=== PATIENT | male | born 1960 | race Caucasian/White ===

== ENCOUNTER 2019-11-30 01:33 | Day surgery (SDC) | payer OTHER, SELFPAY ==
[2019-11-28 13:56] VITALS: BMI 32.3
[2019-11-30] VITALS (10 sets, daily range): BP systolic 122–166; BP diastolic 71–89; PULSE 68–84; RESP 10–20; TEMP 36.2–37.1; O2SAT 93–100
--- NOTE | ~2019-11-30 | XR_ITS ---
XR surgery orthopedic 11/30/2019 14:22 Indication: ORIF right ankle status post fracture Procedure: 3 fluoroscopic images of the right ankle. 122 seconds of fluoroscopy. DAP is 7.6. Comparison: 11/28/2019 Findings: There is anatomic alignment of the right ankle post reduction with fibular sideplate and sc rews. There is a distal tibial component with internal fixation. Ankle mortise intact. Impression: 1: Anatomic alignment of the right ankle post surgical reduction with fibular sideplate and screws. Reviewed, dictated and finalized at location B. ER OPERATOR Impression: 1: Anatomic alignment of the right ankle post surgical reduction with fibular s ideplate and screws.
--- NOTE | 2019-11-30 05:55 | ECG_ITS ---
Measurements Intervals [place] Rate: 65 P: 29 PA: 163 QRS: -13 QRSD: 91 T: 7 QT: 402 QTc: 418 Interpretive Statements SINUS RHYTHM WITH SINUS ARRHYTHMIA VOLTAGE CRITERIA FOR LVH BORDERLINE T WAVE ABNORMALITY- INFERIOR LEADS BORDERLINE ECG Electronically Signed On 11-30-2019 12:47:37 MAGAZINE HAND by Prem Beebe D.O.
--- NOTE | 2019-11-30 07:25 | WPDHPUPDATE1 ---
History and Physical Update Update Date/Time: 11/30/19 07:25 History and Physical has been reviewed, including an updated exam of the patient. There are NO changes in the patient's condition. Risks, benefits, and alternatives have been discussed and questions answered. Patient agrees to proceed with procedure.
--- NOTE | 2019-11-30 11:41 | WPDANESPNB ---
Anes - Peripheral Nerve Block Date/Time: 11/30/19 11:41 I have discussed with the patient/family/POA the placement of a peripheral nerve block for post-operative pain management, including associated risks, benefits, complications, and side effects. Alternative methods of post-operative analgesia were detailed. Questions were solicited and answers provided to the satisfaction of the patient/family/POA. Time-Out: A pre-procedural Time-Out was completed immediately before starting the procedure and confirmed: Patient Identification, Site, Procedure, Patient Position and the Availability of Requisite Equipment. Clinical Indications: Acute post-operative pain management requested by the operative surgeon. Nerve Block Insertion Note Anes-nerve block: posterior fossa sciatic right and adductor canal right Patient position: supine (for adductor canal) and other (right lateral for popliteal) Skin prep: chlorhexidine Needle: 22 gauge, stimulating, insulated echogenic needle. Needle length: 80 mm Technique: nerve stimulation lost at (mA) (for popliteal lost at 0.2) and ultrasound Injectate: bupivacaine 0.5% with epi 5 mcg/ml (20 mL for popliteal, 10 mL for adductor canal) Observations: tolerated well Complications: none Procedure start time:: 1237 Procedure end time:: 1242
[2019-11-30] MEDS: LACTATED RINGERS 1,000 ML 30 ML IV CONT ×2 (12:00→14:43)
--- NOTE | 2019-11-30 12:13 | WPDANESEPPF ---
Anes - Initial Pre Proc Eval Procedure: Operation Date: 11/30/19 13:30 Proposed Procedures p Open Reduction Internal Fixation Right Ankle Bimalleolar Fracture - Deven Marroquin MD Date/Time: 11/30/19 12:13 Surgeon: Deven Marroquin MD Pre Op Diagnosis: Right Ankle Displaced Bimalleolar Fx Patient Data Age: 59 Gender: M Height: 1.78 m Weight: 102.06 kg Allergies Allergy/AdvReac Type Severity Reaction Status Date / Time No Known Allergies Allergy Verified 11/28/19 13:57 Home Medications Medication Instructions Recorded Confirmed Type glimepiride 4 mg PO DAILY 11/26/19 11/28/19 History metformin 500 mg PO BID 11/26/19 11/28/19 History oxycodone-acetaminophen [Percocet] 1 tablet PO Q6H PRN #30 tablet 11/26/19 11/28/19 Rx sitagliptin [Januvia] 100 mg PO DAILY 11/26/19 11/28/19 History aspirin 81 mg PO DAILY 11/28/19 11/28/19 History lovastatin 40 mg PO DAILY 11/28/19 11/28/19 History Patient hx anesthesia problems: none Family hx anesthesia problems: none [facility] Past Medical History Medical History (Updated 11/29/19 @ 09:58 by Laci Mallory DO) Diabetes mellitus Hyperlipidemia Family History Family History (Updated 11/28/19 @ 11:26 by Anahi Sims) Other Diabetes mellitus Anes - Eval Final PreProcedure Day of Procedure 11/30/19 12:13 Patient weight: obese Heart: regular rate and rhythm Lungs: clear to auscultation and normal air movement Airway: Mallampati scale class II Neurological: alert and oriented Last oral intake: >/= 8 hours ASA classification: III Emergent: no Anesthetic plan: proceed Anesthesia type and monitoring: general LMA and standard monitoring Informed Consent: The patient's anesthetic plan and its attendant risks and benefits were discussed with the patient/family/POA. Questions were solicited and answers provided to the satisfaction of the patient/family/POA.
[2019-11-30] MEDS: CELECOXIB 200 MG CAPSULE PO (12:30)
[2019-11-30 12:32] LABS: Blood Urea Nitrogen 13 mg/dL (9-20); Calcium 9.2 mg/dL (8.4-10.2); Carbon Dioxide 28 mmol/L (22-30); Chloride 101 mmol/L (98-107); Estimated CRCL calculation 92 ml/min; Estimated Glomerular Filt Rate > 60; Glucose 96 mg/dL (75-110); Potassium 4.3 mmol/L (3.4-5.0); Sodium 140 mmol/L (137-145)
[2019-11-30] MEDS: ceFAZolin 2 GM/D5W 50 ML 2 GM/50 ML BAG IVPB ×2 (12:48→19:59)
--- NOTE | 2019-11-30 12:57 | SUR.PREOP ---
STAT BMP DONE DOS- SERUM GLUCOSE 86MG/DL BY DOCUMENTING RN---NO ACCUCHECK DONE. FANY
[2019-11-30] MEDS: KETOROLAC 30 MG/ML VIAL (*BKC) IV PUSH (14:30)
--- NOTE | 2019-11-30 14:46 | PM.OP ---
Procedure Note - Brief Procedure Note - Brief Date of procedure: 11/30/19 Pre-op diagnosis: Right Ankle Displaced Bimalleolar Fx Procedure performed: ORIF RIGHT ANKLE WITH SYNDESMOSIS FIXATION Anesthesia: GETA Surgeon: Deven Marroquin MD Estimated blood loss (mL): 10 Complications: No immediate complications Condition: stable Disposition: PACU
[2019-11-30 15:01] LABS: Glucose Point of Care 151 (65-105)
--- NOTE | 2019-11-30 15:46 | SUR.PHASEI ---
1548 updated family in waiting room 1544 report to anthony
[2019-11-30] MEDS: SODIUM CHLORIDE 0.9% IV 1,000 ML 125 ML IV CONT (16:48)
[2019-11-30] MEDS: metFORMIN HCL 500 MG TABLET PO (17:58)
[2019-11-30] MEDS: GLIMEPIRIDE 2 MG TABLET 4 MG PO (17:59)
--- NOTE | 2019-11-30 19:21 | OP_ITS ---
DATE OF PROCEDURE: 11/30/2019 PREOPERATIVE DIAGNOSIS: Right bimalleolar ankle fracture. POSTOPERATIVE DIAGNOSIS: Right bimalleolar ankle fracture. PROCEDURE: Open reduction and internal fixation right ankle with syndesmosis fixation. ANESTHESIA: General. COMPLICATIONS: None. INDICATIONS: This is a 59-year-old male with right lateral malleolus and posterior malleolar ankle fracture with widened syndesmosis. He was indicated for open reduction and internal fixation right ankle. DESCRIPTION OF PROCEDURE: The patient was taken to the operating room in stable condition and placed in supine position. General anesthesia was induced. Right lower extremity was prepped and draped sterilely from the toes to the knee. Incision was made over the lateral aspect of the ankle down through the subcutaneous tissues. The superficial peroneal nerve was identified and protected. The dissection continued until the fascia over the bone was incised and the fracture was exposed. The fracture was reduced with fracture clamps, and then an Arthrex plate was placed bridging the fracture fragments in good position. The posterior malleolus was reduced well, and then there was some stress views done, which showed maybe some mild laxity in the syndesmosis, so using a standard technique, a tight rope type system was used to fixate the fibula to the tibia. X-rays were then taken once again found that everything was reduced well. The mortise view looked very nice with intact mortise. AP and lateral views also looked well with hardware in good position. The wound was irrigated thoroughly. The deep layers were approximated with #2-0 Vicryl, subcutaneous tissues with 3-0 Vicryl and the skin with amelia. Wounds were washed, placed sterile dressing. The patient was extubated and sent to recovery. Disha I MT: Shy
[2019-11-30 21:21] LABS: Glucose Point of Care 273 (65-105)
[2019-12-01] MEDS: ceFAZolin 2 GM/D5W 50 ML 2 GM/50 ML BAG IVPB ×2 (04:23→12:28)
[2019-12-01 06:00] VITALS: BP 136/67; PULSE 62; RESP 16; TEMP 36.2; O2SAT 100
[2019-12-01 07:37] LABS: Glucose Point of Care 76 (65-105)
[2019-12-01 08:17] VITALS: BP 143/58; PULSE 69; RESP 18; O2SAT 100
[2019-12-01] MEDS: GLIMEPIRIDE 2 MG TABLET 4 MG PO (08:20)
[2019-12-01] MEDS: ASPIRIN 81 MG ENTERIC TABLET PO (08:20)
[2019-12-01] MEDS: LOVASTATIN 20 MG TABLET 40 MG PO (08:21)
--- NOTE | 2019-12-01 08:39 | WPDANESPN ---
Anes - Prog Note Post-Op Date/Time: 12/01/19 08:39 Cardiovascular status: normal Respiratory status: normal Airway patency: baseline Mental status: baseline Post-Op hydration status: normal Vital Signs: Last Vital Signs Temp 36.2 C L 12/01/19 06:00 Pulse 69 12/01/19 08:17 Resp 18 12/01/19 08:17 BP 143/58 H 12/01/19 08:17 Pulse Ox 100 12/01/19 08:17 I/O: Intake & Output 11/30/19 12/01/19 12/01/19 23:59 07:59 15:59 Intake Total 740 290 Output Total 1000 500 Balance -260 -210 Laboratory Tests 11/30/19 12:12 11/30/19 11/30/19 11/30/19 12:12 14:58 21:10 Sodium 140 Potassium 4.3 Chloride 101 Carbon Dioxide 28 BUN 13 Creatinine 0.90 Estim Creat Clear Calc 92 Estimated GFR > 60 Glucose 96 POC Capillary Glucose 151 H 273 H Calcium 9.2 12/01/19 07:35 Sodium Potassium Chloride Carbon Dioxide BUN Creatinine Estim Creat Clear Calc Estimated GFR Glucose POC Capillary Glucose 76 Calcium Post-procedural complaints: none Patient Feedback: Patient satisfied with anesthetic care.
--- NOTE | 2019-12-01 09:54 | PM.PNORT ---
Progress Note: A&P Assessment and Plan (1) Ankle fracture, bimalleolar, closed: Qualifiers: Encounter type: subsequent encounter Laterality: right Fracture healing: with routine healing Qualified Code(s): S82.841D - Displaced bimalleolar fracture of right lower leg, subsequent encounter for closed fracture with routine healing Code(s): S82.843A - Displaced bimalleolar fracture of unspecified lower leg, initial encounter for closed fracture Status: Acute Assessment and Plan: POD #1: ORIF Right Ankle Fracture PT/OT for gait training. Walker. NWB RLE. Continue pain control. Ice. Elevation. Reviewed Incentive Spirometry Use. Keep Splint C/D/I. Dispo: Home today pending progress with PT/OT. Subjective Subjective Date/Time Seen: 12/01/19 09:54 Patient feeling well. Pain well-controlled. Awaiting PT/OT. Wants to go home today. Review of Systems Review of Systems: All systems reviewed & are unremarkable except as noted in HPI and below Constitutional: Constitutional: Denies chills, Denies fatigue, Denies fever(s) and Denies weakness Cardiovascular: Cardiovascular: Denies chest pain and Denies lightheadedness Respiratory: Respiratory: Denies cough, Denies dyspnea and Denies dyspnea on exertion Gastrointestinal: Gastrointestinal: Denies abdominal pain, Denies constipation, Denies diarrhea, Denies nausea and Denies vomiting Genitourinary: Genitourinary: Denies dysuria Musculoskeletal: Musculoskeletal: Reports other (Right Foot/Ankle Pain (well-controlled) ) Exam Const: General: comfortable and no acute distress Resp: Effort & Inspection: normal respiratory effort Cardio: Rate: regular rate Rhythm: regular rhythm GI: Inspection: non-distended Skin: General skin exam: normal color and no erythema Neuro: Cognition (Neuro): normal cognition Extrem: Right lower extremity: normal to inspection, normal capillary refill and ankle (Splint C/D/I) Details: tenderness (Right Ankle ), swelling Details: diffusely and abnormal ROM (ROM limited- splint in place ) Left lower extremity: normal to inspection, full ROM, normal capillary refill and ankle Details: normal to inspection; no tenderness and no swelling Other: Right Ankle splint c/d/i. Moves toes. Sensation intact to light touch. Good capillary refill. Psych: Mental Status: mental status grossly normal Affect: normal affect Objective Data Vital Signs Vital Signs: Vital Signs - 24 hr 11/30/19 12:36 11/30/19 14:43 11/30/19 14:55 Temperature 37.1 C 36.2 C L Pulse Rate 68 84 80 Respiratory Rate 18 10 L 13 Blood Pressure 124/74 144/75 H 135/75 Pulse Oximetry 96 100 100 11/30/19 15:10 11/30/19 15:25 11/30/19 15:40 Temperature Pulse Rate 78 81 79 Respiratory Rate 15 13 11 L Blood Pressure 142/78 H 143/78 H 126/76 Pulse Oximetry 100 93 94 11/30/19 16:05 11/30/19 16:20 11/30/19 16:53 Temperature 36.3 C L 36.4 C 36.6 C Pulse Rate 80 76 77 Respiratory Rate 20 20 20 Blood Pressure 149/78 H 122/89 166/83 H Pulse Oximetry 100 95 95 11/30/19 22:00 12/01/19 06:00 12/01/19 08:17 Temperature 37.0 C 36.2 C L Pulse Rate 83 62 69 Respiratory Rate 16 16 18 Blood Pressure 140/71 136/67 143/58 H Pulse Oximetry 97 100 100 Intake/Output Intake/Output: Intake & Output 11/28/19 11/29/19 11/30/19 12/01/19 23:59 23:59 23:59 23:59 Intake Total 1090 650 Output Total 1000 500 Balance 90 150 Meds/Results Medications: Active Medications Generic Name Dose Route Start Last Admin Trade Name Freq PRN Reason Stop Dose Admin Acetaminophen 650 mg 11/30/19 14:47 Tylenol Tablet PO Q6H PRN Pain Rated 1-3 Hydrocodone Bitart/Acetaminophen 1 tab 11/30/19 14:47 11/30/19 23:09 [place] 7.5-325 Mg PO 1 tab Q3H PRN Administration Pain Rated 4-6 Aspirin 81 mg 12/01/19 09:00 12/01/19 08:20 Aspirin Ec PO 81 mg DAILY JENNIFER Administration Dextrose 12.5 gm 11/30/19 20:12 Dextro
[2019-12-01 12:04] LABS: Glucose Point of Care 92 (65-105)
[2019-12-01] MEDS: metFORMIN HCL 500 MG TABLET PO (12:29)
--- NOTE | 2019-12-01 13:00 | PM.IMHP ---
H&P: HPI History of Present Illness Chief complaint: Right Ankle Displaced Bimalleolar Fx Narrative: Date of Service 12/01/19 The supervising physician for this medical consultation is Dr. Cecilia Lomeli. Mr. Sauceda is a 59 year old male with history of [id number] type 2 diabetes mellitus and dyslipidemia who I am asked to see in consultation by Dr. Marroquin for postoperative medical management s/p ORIF right ankle fracture. Patient fell 11/26/19 at home and sustained by malleolar right ankle fracture. He reports feeling well today and seems that he has tolerated the procedure well. He denies any nausea, vomiting, chest pain, or shortness of breath. He reports he has done well with therapy and is looking forward to possible discharge later today. Review of Systems Review of Systems: Narrative: Twelve systems were reviewed with pertinent positives and negatives as per HPI. [facility] Past Medical History Medical History Diabetes mellitus High cholesterol Hyperlipidemia Family History Family History (Updated 12/01/19 @ 13:16 by Sunshine Mccollum PA-C) Father Heart disease Other Diabetes mellitus Social History Social History (Updated 12/01/19 @ 13:18 by Sunshine Mccollum PA-C) Social History: Mr. Sauceda lives in [place] with his and children. 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 He reports occasional alcohol use, around 1 beer per month. He smoked cigarettes for about 5 years in the 80s and quit. He denies substance use. His PCP is Dr Debra Vance in [place]. He is full code status. Years smoked: 5 Smoking status: Former smoker Tobacco type: cigarettes Alcohol intake: current Alcohol use details: Occasional - < 1 beer per week. Substance use: never Living arrangements: with family Gender identity (if verbalized by the patient): Male Spiritual care concerns: No Agree to blood products: Yes Meds Home Medications and Allergies Home Medications Medication Instructions Recorded Confirmed Type Januvia 100 mg PO DAILY 11/26/19 11/30/19 History glimepiride 4 mg PO DAILY 11/26/19 11/30/19 History metformin 1,000 mg PO BID 11/26/19 11/30/19 History aspirin 81 mg PO DAILY 11/28/19 11/30/19 History lovastatin 40 mg PO DAILY 11/28/19 11/30/19 History aspirin 81 mg PO BID 14 Days #28 tablet 12/01/19 Rx docusate sodium [Colace] 100 mg PO BID PRN #30 cap 12/01/19 Rx hydrocodone-acetaminophen 1 tab PO Q3H PRN #56 tablet 12/01/19 Rx Allergies Allergy/AdvReac Type Severity Reaction Status Date / Time No Known Allergies Allergy Verified 11/30/19 12:56 Vital Signs Vital Signs - 24 hr 11/30/19 14:43 11/30/19 14:55 11/30/19 15:10 Temperature 97.2 F L Pulse Rate 84 80 78 Respiratory Rate 10 L 13 15 Blood Pressure 144/75 H 135/75 142/78 H Pulse Oximetry 100 100 100 11/30/19 15:25 11/30/19 15:40 11/30/19 16:05 Temperature 97.3 F L Pulse Rate 81 79 80 Respiratory Rate 13 11 L 20 Blood Pressure 143/78 H 126/76 149/78 H Pulse Oximetry 93 94 100 11/30/19 16:20 11/30/19 16:53 11/30/19 22:00 Temperature 97.6 F 97.9 F 98.6 F Pulse Rate 76 77 83 Respiratory Rate 20 20 16 Blood Pressure 122/89 166/83 H 140/71 Pulse Oximetry 95 95 97 12/01/19 06:00 12/01/19 08:17 Temperature 97.2 F L Pulse Rate 62 69 Respiratory Rate 16 18 Blood Pressure 136/67 143/58 H Pulse Oximetry 100 100 Exam Narrative: Exam Narrative: General: Male sitting up in bedside chair no acute distress, visiting with family in the room. HEENT: Normocephalic, EOMI, oral mucosa moist. Cardiovascular: Rate rhythm regular. Respiratory: Lungs clear to auscultation all jones. Non-labored breathing. Tolerating room air. Abdomen: Soft, non-tender, non-distended, bowel sounds present. Extremities: Right toes outside of his splint are neurovascularly intact distal to the surgical site. Neuro: No focal neuro
[2019-12-01 14:00] VITALS: PULSE 63; RESP 16; TEMP 36.9; O2SAT 98
--- NOTE | 2019-12-01 15:29 | PM.DS ---
DS: Diagnosis Admitting Diagnosis Admitting Diagnosis: Displaced bimalleolar fracture of right lower leg, subsequent encounter for closed fracture with routine healing DS: Summary Hospital Course Reason for hospitalization: Postoperative pain/medical management and PT/OT s/p right ankle ORIF Hospital Course: 59 year old male admitted s/p ORIF right ankle for postoperative pain control, medical management and gait training. Patient had a stable hospital course and has been cleared by medicine and PT/OT to go home. He is able to ambulate NWB of the RLE safely. Status at Discharge Functional status at discharge: uses cane/walker (NWB RLE ) Overall status at discharge: patient is progressing back to baseline Time Spent with Patient Time attestation: Total time spent providing and/or coordinating discharge services: Exam Const: General: comfortable and no acute distress Resp: Effort & Inspection: normal respiratory effort Cardio: Rate: regular rate Rhythm: regular rhythm GI: Inspection: non-distended Skin: General skin exam: normal color and no erythema Neuro: Cognition (Neuro): normal cognition Extrem: Right lower extremity: normal to inspection, normal capillary refill and ankle (Splint C/D/I) Left lower extremity: normal to inspection, full ROM, normal capillary refill and ankle Other: Right Ankle splint c/d/i. Moves toes. Sensation intact to light touch. Good capillary refill. Psych: Mental Status: mental status grossly normal Affect: normal affect DS: Data Data Completed and Pending Labs on day of discharge: Labs from last 24 hours 12/01/19 12/01/19 11/30/19 11:55 07:35 21:10 POC Capillary Glucose 92 76 273 H Discharge Plan Discharge Attending physician on discharge: Deven Marroquin Consulting providers: Sunshine Mccollum Discharging Clinician: Thelma Miller Patient Disposition: Home, Self-Care Activity: no shower and other - see discharge instructions Diet: as tolerated Wound Care Instructions: keep dressing dry Discharge Instructions: Orthopedic Instructions: Keep splint clean and dry. Do NOT bear weight on the RIGHT lower extremity Elevate above level of heart on pillows. Follow up with Dr. Marroquin as scheduled. Contact our office at [phone] with any questions/concerns. Your medications have been called to the pharmacy. Increase your aspirin 81mg to TWO TIMES daily for DVT prevention per Dr. Marroquin x14 days. STOP taking any narcotics aside from the [place] prescribed to you today. Hospitalist Care Instructions: Follow up with primary care provider in 2 weeks Patient Instructions: Antibiotic Form Stand Alone Forms: General Discharge Information Follow-up/Referrals: Deven Marroquin MD [Physician] - 12/15/19 1:00 pm (You have a follow up appointment with Dr. Marroquin on 12/15/19 at 1:00 PM at [facility]. ) Yen Vance MD [Primary Care Provider] - 2 Weeks Thelma Miller FNP [Advanced Practice Nurse] - Discharge Medications: New hydrocodone-acetaminophen 7.5-325 mg Tablet 1 tab PO Q3H PRN (Reason: Pain Rated 4-6) Qty: 56 RF: 0 docusate sodium [Colace] 100 mg capsule 100 mg PO BID PRN (Reason: constipation) Qty: 30 RF: 0 aspirin 81 mg Tablet,Delayed Release (Dr/Ec) 81 mg PO BID 14 Days Qty: 28 RF: 0 Continued metformin 500 mg Tablet 1,000 mg PO BID RF: 0 glimepiride 4 mg Tablet 4 mg PO DAILY RF: 0 Januvia 100 mg Tablet 100 mg PO DAILY RF: 0 lovastatin 20 mg tablet 40 mg PO DAILY RF: 0 Discontinued oxycodone-acetaminophen [Percocet] 5-325 mg tablet 1 tablet PO Q6H PRN (Reason: pain) Qty: 30 RF: 0 No Action aspirin 81 mg Tablet,Delayed Release (Dr/Ec) 81 mg PO DAILY RF: 0 Date of admission: 11/30/19 14:47 Primary Care Provider: Yen Vance Admitting Provider: Deven Marroquin Attending physician on admission: Deven Marroquin
== END 2019-12-01 16:35 | disposition home or self-care (01) ==
LOC: ANHSURGERY 11:28 → ANH3MEDSUR 12-01 07:11
PROVIDERS: Anesthesiology; PCP Internal Medicine; Visit Provider Orthopaedic Surgery
PROC: (CPT 27814; principal; 2019-11-30 13:30)
DX: S82.841A Displaced bimalleolar fracture of right lower leg, initial encounter for closed fracture (principal); S93.431A Sprain of tibiofibular ligament of right ankle, initial encounter; G89.18 Other acute postprocedural pain; W19.XXXA Unspecified fall, initial encounter; E11.9 Type 2 diabetes mellitus without complications; E78.5 Hyperlipidemia, unspecified; Z79.84 Long term (current) use of oral hypoglycemic drugs; Z79.82 Long term (current) use of aspirin; E66.9 Obesity, unspecified; Z68.27 Body mass index [BMI] 27.0-27.9, adult
CPT/HCPCS: 27814; 27829; 64447; 64445; 36415; 76000; 80048; 93005; 97116; 97161; 97530; A9270; C1713; J0690; J1100; J1885; J2250; J2405; J2704; J3010; J7030; J7120

== ENCOUNTER 2020-01-05 08:57 | Outpatient (RCR) | payer OTHER, SELFPAY ==
--- NOTE | 2020-01-05 10:02 | PTOPEVAL ---
Thank you for referring this patient to [facility] [place]. Please review, sign, date and return this plan of care PIEDAD. I agree with and certify that the following plan of care is medically necessary. Referring Physician Date Admitting Provider: Attending Provider: Deven Marroquin MD Referring Provider: *PT Outpatient Evaluation Start: 01/05/20 09:06 Freq: Status: Active Protocol: Document 01/05/20 09:05 [facility] (Rec: 01/05/20 10:02 [facility] [id number]) Therapy Assessment Status Assessment Status Assessment Status Evaluation Outpatient Past Medical History Neurological History Hx Neurological Disorders No Significant History Cardiovascular History Hx Hypercholesterolemia Yes Respiratory History Hx Respiratory Disorders No Significant History Gastrointestinal History Hx Gastrointestinal Disorders No Significant History Genitourinary History Hx Genitourinary Disorders No Significant History Musculoskeletal History Hx Fractures Yes: RT ANKLE FX Hx Orthopedic Surgery Yes: RIGHT Orif 11/30/19 Hematological History Hx Hematological Disorders No Significant History Endocrine History Hx Diabetes Yes HEENT History Hx HEENT Disorders No Significant History Integumentary History Hx Skin Disorders No Significant History Reproductive History Hx Reproductive Disorders No Significant History Psychosocial History Hx Psychiatric Disorders No Significant History Pain History History of Any Previous or Ongoing No Significant History Instance of Pain Anesthesia History Hx Anesthesia Reactions No Significant History Evaluation Information Problem Diagnosis R ORIF ankle Onset 11/26/19 Subjective Information patient reports he fell down Query Text:As Reported By Patient/ some steps and broke his R Family ankle on 11/26/19. he reports he had surgery to stabilize the R ankle with and ORIF surgery on 11/30/19. he reports he is to beging therapy this date, but is NWB for 6 weeks from surgery. he reports he has been in a boot since surgery. he is NWB fro 6 weeks from surgery. Prior Level of Function Comments Additional Prior Level of Function prior to fall, patient reports Comments he was independent with all activities. he reports he works at [employer]. he reports he is off work currently. Pain Assessment Timing of Pain Assessment Ti
--- NOTE | 2020-02-07 13:11 | PTOPEVAL ---
Thank you for referring this patient to [facility]. Please review, sign, date and return this plan of care PIEDAD. I agree with and certify that the following plan of care is medically necessary. Referring Physician Date Admitting Provider: Attending Provider: Deven Marroquin MD Referring Provider: *PT Outpatient Evaluation Start: 01/05/20 09:06 Freq: Status: Active Protocol: Document 02/03/20 08:15 [facility] (Rec: 02/07/20 13:11 [facility] [id number]) Therapy Assessment Status Assessment Status Assessment Status Re-evaluation Outpatient Past Medical History Neurological History Hx Neurological Disorders No Significant History Cardiovascular History Hx Hypercholesterolemia Yes Respiratory History Hx Respiratory Disorders No Significant History Gastrointestinal History Hx Gastrointestinal Disorders No Significant History Genitourinary History Hx Genitourinary Disorders No Significant History Musculoskeletal History Hx Fractures Yes: RT ANKLE FX Hx Orthopedic Surgery Yes: RIGHT Orif 11/30/19 Hematological History Hx Hematological Disorders No Significant History Endocrine History Hx Diabetes Yes HEENT History Hx HEENT Disorders No Significant History Integumentary History Hx Skin Disorders No Significant History Reproductive History Hx Reproductive Disorders No Significant History Psychosocial History Hx Psychiatric Disorders No Significant History Pain History History of Any Previous or Ongoing No Significant History Instance of Pain Anesthesia History Hx Anesthesia Reactions No Significant History Evaluation Information Problem Diagnosis R ankle ORIF Subjective Information patient reports he feels Good Query Text:As Reported By Patient/ this date. he reports he Family still has pain in the R ankle. however, his pain is much reduced since his initial evaluation, and reports he improves weekly. he reports he is not ready to return to work at this time due to decreased walking and standing ability. Pain Assessment Timing of Pain Assessment Timing of Pain Assessment Assessment Pain Scale Pain Scale Used Numeric (1 - 10) Self Report Pain Assessment Right Ankle(s) Reported Pain Level 3 Lowest Pain Intensity 2 Greatest Pain Intensity 5 Pain Score Pain Score 3: Self Report Lower Extremity Range of Motion Ankle/Foot Range of Motion Right Ankle Dorsiflextion With Knee Extension 0
== END 2020-02-28 10:34 | disposition home or self-care (01) ==
LOC: CHSPT 08:57
PROVIDERS: PCP Internal Medicine; Visit Provider Orthopaedic Surgery
DX: Z98.890 Other specified postprocedural states (principal)
CPT/HCPCS: 97016; 97110; 97161; 97530

== ENCOUNTER 2022-09-30 14:32 | Emergency (ER) | payer OTHER, SELFPAY ==
--- NOTE | ~2022-09-30 | XR_ITS ---
EXAMINATION: XR chest 2V DATE: 09/30/2022 15:05 INDICATION: Chest wall pain, shortness of breath TECHNIQUE: PA and lateral views of the chest are obtained. COMPARISON: None available FINDINGS: There is mild atelectasis of the lung bases. No pleural effusion or pneumothorax. The cardi omediastinal silhouette is normal. There is mild thoracic spondylosis. IMPRESSION: 1. Mild bibasilar atelectasis. Reviewed, dictated and finalized at location [facility]
--- NOTE | ~2022-09-30 | XR_ITS ---
EXAMINATION: XR thoracic spine 2V DATE: 09/30/2022 15:05 INDICATION: Mid back pain after fall TECHNIQUE: AP, lateral and lateral swimmer's views of the thoracic spine were obtained. COMPARISON: None. FINDINGS: Bone alignment is normal. There is no fracture. Small degenerative osteophytes project from the anterior endplates of multiple vertebral bodies. There is mild loss of intervertebral disc space height throughout the thoracic spine. IMPRESSION: 1. Mild thoracic spondylosis without acute findings. Reviewed, dictated and finalized at location [facility]. [facility]
[2022-09-30 14:35] VITALS: BP 183/87; PULSE 74; RESP 18; O2SAT 96
--- NOTE | 2022-09-30 14:40 | ED.BACK ---
HPI - Back Pain/Injury General Chief Complaint: Back Pain/Injury Stated Complaint: back pain Time Seen by Provider: 09/30/22 14:40 Source: patient Mode of arrival: wheelchair History of Present Illness HPI Narrative: 62-year-old male, Diabetes mellitus slipped on ice and fell on his back this morning. He presents to the ER with -- interscapular pain. The pain is present in the mid back and radiates forwards. -- No head injury. No loss of consciousness. MD elicited complaint: back pain, back injury and fall Onset (ago): hour(s) ( 6 hours ago.) Timing: constant Severity: moderate Similar Symptoms Previously: No Quality: dull Location: thoracic spine Radiation: none Exacerbating factors: movement Relieving factors: none Associated symptoms: denies other symptoms Work related injury: No Related Data Home Medications Medication Instructions Recorded Confirmed glimepiride 4 mg tablet 4 mg PO DAILY 11/26/19 09/30/22 metformin 500 mg tablet 1,000 mg PO BID 11/26/19 09/30/22 sitagliptin phosphate 100 mg 100 mg PO DAILY 11/26/19 09/30/22 tablet (Januvia) aspirin 81 mg tablet,delayed 81 mg PO DAILY 11/28/19 09/30/22 release lovastatin 20 mg tablet 40 mg PO DAILY 11/28/19 09/30/22 Allergies Allergy/AdvReac Type Severity Reaction Status Date / Time No Known Allergies Allergy Verified 09/30/22 14:55 Review of Systems Review of Systems: All systems reviewed & are unremarkable except as noted in HPI and below Constitutional: Constitutional: Reports as per HPI and Reports no additional constitutional complaints Eyes: Eyes: Reports as per HPI and Reports no additional eye complaints ENT: Reports system reviewed and no additional complaints, except as documented and Reports as per HPI Cardiovascular: Cardiovascular: Reports as per HPI and Reports no additional cardiovascular complaints Respiratory: Respiratory: Reports as per HPI and Reports no additional respiratory complaints Gastrointestinal: Gastrointestinal: Reports as per HPI and Reports no additional gastrointestinal complaints Genitourinary: Genitourinary: Reports no additional male genitourinary complaints and Reports as per HPI Musculoskeletal: Musculoskeletal: Reports no additional musculoskeletal complaints, Reports as per HPI and Reports back pain Comments: Pain over the interscapular region and radiating forwards Integumentary/Breasts: Comments: no bruising/ hematoma / laceration on the back. Neurologic: Reports system reviewed and no additional complaints, except as documented and Reports as per HPI Psychiatric: Psychiatric: Reports no additional psychiatric complaints and Reports as per HPI Endocrine: Endocrine: Reports no additional endocrine complaints and Reports as per HPI Hematologic/Lymphatic: Hematologic/Lymphatic: Reports no additional hematologic/lymphatic complaints and Reports as per HPI Allergic/Immunologic: Allergic/Immunologic: Reports no additional allergic/immunologic complaints and Reports as per HPI [facility] Past Medical History Medical History (Updated 09/30/22 @ 15:28 by Arnold Tellez MD) Diabetes mellitus High cholesterol Hyperlipidemia Family History Family History Father Heart disease Other Diabetes mellitus Social History Social History Social History: Mr. Sauceda lives in [place] with his and children. 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 He reports occasional alcohol use, around 1 beer per month. He smoked cigarettes for about 5 years in the 80s and quit. He denies substance use. His PCP is Dr Debra Vance in [place]. He is full code status. Years smoked: 5 Smoking status: Former smoker Tobacco type: cigarettes Alcohol intake: current Alcohol use details: Occasional - < 1 beer per week. Substance use: never Gender identity (if verbalized by the patient
[2022-09-30] MEDS: ONDANSETRON HCL ODT 4 MG TABLET PO (15:05)
[2022-09-30] MEDS: HYDROmorphone HCL INJ (*CRX) 2 MG/ML VIAL 0.5 MG IM (15:07)
[2022-09-30 15:09] VITALS: TEMP 37.3
--- NOTE | 2022-09-30 15:46 | PC.NURSE ---
PT DECLINES 2ND INJECTION. PT REPORTS HE IS NAUSEATED, BROKE OUT INTO A COLD SWEAT. ICE PACK, WET CLOTH, AND ICE CHIPS PROVIDED. TO TRANSPORT HOME. PT REPORTS PAIN HAS IMPROVED, REMAINS AT A 6.
[2022-09-30 15:48] VITALS: BP 154/83; PULSE 70; RESP 16; O2SAT 98
== END 2022-09-30 15:48 | disposition home or self-care (01) ==
PROVIDERS: Emergency Provider Internal Medicine Critical Care Medicine; PCP Internal Medicine
DX: M54.9 Dorsalgia, unspecified (principal); R07.89 Other chest pain; W00.0XXA Fall on same level due to ice and snow, initial encounter
CPT/HCPCS: 71046; 72070; 96372; 99284; A9270; J1170